=== PATIENT | male | born 1940 | race Caucasian/White ===

== ENCOUNTER 2020-11-17 14:21 | Inpatient (IN) ==
[2020-11-17 16:23] LABS: Basophils % 0.1 % (0.0-0.8); Hematocrit 35.9 VOL% (42.0-52.0); Immature Granulocytes % 0.5 %; Immature Granulocytes Absolute 0.05 #; Lymphocytes # 0.2 10*3/uL (1.4-4.0); Lymphocytes % 1.6 % (21.2-54.2); Mean Corpuscular HGB Conc 36.8 GM/DL (32-36); Mean Corpuscular Volume 84.3 FL (87-102); Monocytes % 9.5 % (1.7-12.7); Neutrophils % 88.3 % (38.7-73.9); Platelet Count 214 T/CUMM (130-400); Red Blood Count 4.26 MC/CUMM (3.8-5.5); Red Cell Distribution Width 12.4 % (9.3-17.3); White Blood Count 9.4 T/CUMM (4-12)
[2020-11-17] MEDS ORDERED: ALBUTEROL/IPRATROPIUM 3 ML NEB RESP TX STA (16:24)
[2020-11-17] MEDS ORDERED: methylPREDNISolone SOD SUC 125 MG/2 ML VIAL IV STA (16:24)
[2020-11-17] MEDS ORDERED: PIPERACILLIN/TAZOBACTAM 3,375 MG in SODIUM CHLORIDE 0.9% 100 ML IV STA (16:24)
[2020-11-17 16:27] LABS: Albumin 2.7 G/DL (3.4-5.0); Bilirubin,Total 1.5 MG/DL (0.2-1.0); Calcium 7.7 MG/DL (8.5-10.1); Hemoglobin 13.2 GM/DL (14.0-18.0); Osmolality,Calculated 241.3 MOS/KG (273-304); Potassium 4.9 MMOL/L (3.5-5.1); Total Protein 6.1 G/DL (6.4-8.3)
[2020-11-17 16:39] LABS: PT Patient Result 10.8 SECS (9.8-11.9)
[2020-11-17] MEDS ORDERED: hydrALAZINE 20 MG/1 ML VIAL IM STA (16:54)
[2020-11-17] MEDS ORDERED: hydrALAZINE 20 MG/1 ML VIAL ONE (16:55)
[2020-11-17] MEDS ORDERED: hydrALAZINE 20 MG/1 ML VIAL IV PRN (17:55)
[2020-11-17] MEDS ORDERED: DEXTROSE 50% 25 GM/50 ML VIAL IV PRN (17:55)
[2020-11-17] MEDS ORDERED: GLUCAGON 1 MG VIAL IM PRN (17:55)
[2020-11-17] MEDS ORDERED: ONDANSETRON 4 MG/2 ML VIAL IV PRN (17:55)
[2020-11-17] MEDS ORDERED: DOCUSATE SODIUM 100 MG CAPSULE PO PRN (17:55)
[2020-11-17 18:00] LABS: Band Neutrophils 1 % (0-10); Lymphocytes 6 % (20-55); Platelet Estimate Normal; Segmented Neutrophils 84 % (50-85); Total Cells Counted 100
[2020-11-17] MEDS ORDERED: ALBUTEROL 2.5 MG/3 ML NEB RESP TX PRN (18:17)
[2020-11-17] MEDS: SODIUM CHLORIDE 0.9% 1,000 ML IV SCH (19:10)
[2020-11-17] MEDS: ENOXAPARIN 40 MG/0.4 ML SYRINGE SUBCUT SCH (22:08)
[2020-11-17] MEDS: FAMOTIDINE 20 MG TABLET PO SCH (22:08)
[2020-11-17] MEDS: HYDROXYCHLOROQUINE 200 MG TABLET PO SCH (22:08)
[2020-11-17] MEDS: cefTRIAXone 2,000 MG in SODIUM CHLORIDE 0.9% 100 ML IV SCH (22:08)
[2020-11-18 03:59] LABS: Hemoglobin 11.9 GM/DL (14.0-18.0); Immature Granulocytes % 0.2 %; Immature Granulocytes Absolute 0.01 #; Lymphocytes # 0.1 10*3/uL (1.4-4.0); Mean Corpuscular HGB Conc 37.2 GM/DL (32-36); Mean Corpuscular Volume 85.3 FL (87-102); Mean Platelet Volume 11.1 FL (9.6-12.0); Monocytes % 4.8 % (1.7-12.7); Platelet Count 191 T/CUMM (130-400); Red Blood Count 3.75 MC/CUMM (3.8-5.5); Red Cell Distribution Width 12.2 % (9.3-17.3); White Blood Count 5.6 T/CUMM (4-12)
[2020-11-18 04:25] LABS: Calcium 7.9 MG/DL (8.5-10.1); Osmolality,Calculated 251.5 MOS/KG (273-304); Potassium 4.8 MMOL/L (3.5-5.1)
[2020-11-18 04:32] LABS: Hypochromasia 1+; Lymphocytes 3 % (20-55); Microcytosis 1+; Platelet Estimate Adequate; Segmented Neutrophils 96 % (50-85); Total Cells Counted 100
[2020-11-18] MEDS: SODIUM CHLORIDE 0.9% 1,000 ML IV SCH ×2 (07:20→15:00)
[2020-11-18] MEDS: AZITHROMYCIN 250 MG TABLET PO SCH (08:51)
[2020-11-18] MEDS: HYDROXYCHLOROQUINE 200 MG TABLET PO SCH ×2 (08:51→22:54)
[2020-11-18] MEDS: predniSONE 20 MG TABLET PO SCH (08:52)
[2020-11-18] MEDS: amLODIPine 10 MG TABLET PO SCH (08:52)
[2020-11-18] MEDS: ZINC SULFATE 220 MG CAPSULE PO SCH (08:52)
[2020-11-18] MEDS: FAMOTIDINE 20 MG TABLET PO SCH ×2 (08:52→22:54)
[2020-11-18] MEDS: ENOXAPARIN 40 MG/0.4 ML SYRINGE SUBCUT SCH (22:54)
[2020-11-18] MEDS: cefTRIAXone 2,000 MG in SODIUM CHLORIDE 0.9% 100 ML IV SCH (22:54)
[2020-11-19 03:55] LABS: ABG Base Excess 1.6 MMOL/L (-2.5-2.5); ABG HCO3 25.6 MMOL/L (20-26); ABG Oxygen Saturation 88.7 % (95-100); ABG PCO2 35.4 MM HG (35-48); ABG PH 7.459 (7.35-7.45); ABG PO2 55.1 MM HG (80-95); ABG TCO2 22.1 MMOL/L (23-27)
[2020-11-19] MEDS: SODIUM CHLORIDE 0.9% 1,000 ML IV SCH (03:58)
[2020-11-19 05:11] LABS: Hematocrit 36.1 VOL% (42.0-52.0); Hemoglobin 12.8 GM/DL (14.0-18.0); Immature Granulocytes % 0.6 %; Immature Granulocytes Absolute 0.07 #; Lymphocytes # 0.4 10*3/uL (1.4-4.0); Lymphocytes % 3.4 % (21.2-54.2); Mean Corpuscular HGB Conc 35.5 GM/DL (32-36); Mean Platelet Volume 10.5 FL (9.6-12.0); Monocytes % 11.6 % (1.7-12.7); Neutrophils % 84.4 % (38.7-73.9); Platelet Count 257 T/CUMM (130-400); Red Blood Count 4.15 MC/CUMM (3.8-5.5); Red Cell Distribution Width 12.4 % (9.3-17.3); White Blood Count 11.3 T/CUMM (4-12)
[2020-11-19 05:35] LABS: Lymphocytes 2 % (20-55); Platelet Estimate Adequate; Segmented Neutrophils 90 % (50-85); Total Cells Counted 100
[2020-11-19 05:37] LABS: Calcium 8.2 MG/DL (8.5-10.1); Osmolality,Calculated 261.8 MOS/KG (273-304); Potassium 4.3 MMOL/L (3.5-5.1)
[2020-11-19] MEDS: FAMOTIDINE 20 MG TABLET PO SCH ×2 (08:45→20:47)
[2020-11-19] MEDS: HYDROXYCHLOROQUINE 200 MG TABLET PO SCH ×2 (08:45→20:47)
[2020-11-19] MEDS: AZITHROMYCIN 250 MG TABLET PO SCH (08:45)
[2020-11-19] MEDS: predniSONE 20 MG TABLET PO SCH (08:45)
[2020-11-19] MEDS: amLODIPine 10 MG TABLET PO SCH (08:45)
[2020-11-19] MEDS: ZINC SULFATE 220 MG CAPSULE PO SCH (08:45)
[2020-11-19] MEDS: ACETAMINOPHEN 325 MG TABLET PO PRN (20:47)
[2020-11-19] MEDS: ENOXAPARIN 40 MG/0.4 ML SYRINGE SUBCUT SCH (20:47)
[2020-11-19] MEDS: cefTRIAXone 2,000 MG in SODIUM CHLORIDE 0.9% 100 ML IV SCH (20:49)
[2020-11-20 06:43] LABS: Hematocrit 41.2 VOL% (42.0-52.0); Hemoglobin 13.9 GM/DL (14.0-18.0); Immature Granulocytes % 0.6 %; Immature Granulocytes Absolute 0.08 #; Lymphocytes # 0.4 10*3/uL (1.4-4.0); Lymphocytes % 2.9 % (21.2-54.2); Mean Corpuscular HGB Conc 33.7 GM/DL (32-36); Mean Corpuscular Volume 91.4 FL (87-102); Mean Platelet Volume 10.4 FL (9.6-12.0); Monocytes % 9.9 % (1.7-12.7); Neutrophils % 86.6 % (38.7-73.9); Platelet Count 281 T/CUMM (130-400); Red Blood Count 4.51 MC/CUMM (3.8-5.5); Red Cell Distribution Width 12.4 % (9.3-17.3); White Blood Count 12.8 T/CUMM (4-12)
[2020-11-20 07:05] LABS: Calcium 8.3 MG/DL (8.5-10.1); Osmolality,Calculated 256.2 MOS/KG (273-304); Potassium 4.4 MMOL/L (3.5-5.1)
[2020-11-20 07:13] LABS: Lymphocytes 3 % (20-55); Platelet Estimate Adequate; Segmented Neutrophils 90 % (50-85); Total Cells Counted 100
[2020-11-20] MEDS ORDERED: FUROSEMIDE 40 MG/4 ML VIAL IV ONE (09:21)
[2020-11-20] MEDS: ACETAMINOPHEN 325 MG TABLET PO PRN (09:48)
[2020-11-20] MEDS: FAMOTIDINE 20 MG TABLET PO SCH ×2 (09:50→21:20)
[2020-11-20] MEDS: DEXAMETHASONE 10 MG/1 ML VIAL IV SCH (09:50)
[2020-11-20] MEDS: ZINC SULFATE 220 MG CAPSULE PO SCH (09:50)
[2020-11-20] MEDS: AZITHROMYCIN 250 MG TABLET PO SCH (09:50)
[2020-11-20] MEDS: HYDROXYCHLOROQUINE 200 MG TABLET PO SCH ×2 (09:50→21:20)
[2020-11-20] MEDS: amLODIPine 10 MG TABLET PO SCH (09:50)
[2020-11-20 12:02] LABS: ABG Base Excess -0.6 MMOL/L (-2.5-2.5); ABG HCO3 21.5 MMOL/L (20-26); ABG Oxygen Saturation 91.6 % (95-100); ABG PCO2 28.3 MM HG (35-48); ABG PH 7.499 (7.35-7.45); ABG PO2 58.6 MM HG (80-95); ABG TCO2 22.4 MMOL/L (23-27)
[2020-11-20] MEDS ORDERED: ALBUTEROL INHALER 18 GM INH PRN (12:35)
[2020-11-20] MEDS: ALBUTEROL INHALER 18 GM INH SCH (18:47)
[2020-11-20] MEDS: cefTRIAXone 2,000 MG in SODIUM CHLORIDE 0.9% 100 ML IV SCH (21:20)
[2020-11-20] MEDS: ENOXAPARIN 40 MG/0.4 ML SYRINGE SUBCUT SCH (21:20)
[2020-11-20] MEDS ORDERED: DILTIAZEM 25 MG/5 ML VIAL IV ONE ×2 (21:58→22:33)
[2020-11-20] MEDS: ENOXAPARIN 80 MG/0.8 ML SYRINGE SUBCUT SCH (22:38)
[2020-11-21] MEDS ORDERED: FUROSEMIDE 40 MG/4 ML VIAL IV ONE ×2 (01:37→15:29)
[2020-11-21 06:38] LABS: Calcium 8.1 MG/DL (8.5-10.1); Osmolality,Calculated 261.2 MOS/KG (273-304); Potassium 3.9 MMOL/L (3.5-5.1)
[2020-11-21 08:19] LABS: ABG Base Excess -2.1 MMOL/L (-2.5-2.5); ABG HCO3 22.5 MMOL/L (20-26); ABG Oxygen Saturation 90.1 % (95-100); ABG PCO2 37.4 MM HG (35-48); ABG PH 7.388 (7.35-7.45); ABG PO2 61.7 MM HG (80-95); ABG TCO2 19.7 MMOL/L (23-27)
[2020-11-21] MEDS: ALBUTEROL INHALER 18 GM INH SCH ×2 (09:46→18:03)
[2020-11-21] MEDS: AZITHROMYCIN 250 MG TABLET PO SCH (09:47)
[2020-11-21] MEDS: ZINC SULFATE 220 MG CAPSULE PO SCH (09:47)
[2020-11-21] MEDS: DEXAMETHASONE 10 MG/1 ML VIAL IV SCH (09:47)
[2020-11-21] MEDS: FAMOTIDINE 20 MG TABLET PO SCH ×2 (09:47→20:53)
[2020-11-21] MEDS: carvediloL 6.25 MG TABLET PO SCH ×2 (09:47→20:53)
[2020-11-21] MEDS: HYDROXYCHLOROQUINE 200 MG TABLET PO SCH ×2 (09:47→20:54)
[2020-11-21] MEDS: amLODIPine 10 MG TABLET PO SCH (09:47)
[2020-11-21] MEDS: ENOXAPARIN 80 MG/0.8 ML SYRINGE SUBCUT SCH ×2 (10:10→21:37)
[2020-11-21 10:55] LABS: Free T4 (Free Thyroxine) 1.68 NG/DL (0.76-1.46)
[2020-11-21] MEDS ORDERED: DILTIAZEM CD 120 MG CAPSULE PO ONE (15:27)
[2020-11-21] MEDS: cefTRIAXone 2,000 MG in SODIUM CHLORIDE 0.9% 100 ML IV SCH (20:54)
[2020-11-22 05:04] LABS: Allen Test Positive; Pt O2 Delivery Device Other
[2020-11-22 05:11] LABS: ABG Base Excess 0.7 MMOL/L (-2.5-2.5); ABG HCO3 24.7 MMOL/L (20-26); ABG Oxygen Saturation 84.5 % (95-100); ABG PCO2 38.3 MM HG (35-48); ABG PH 7.421 (7.35-7.45); ABG PO2 52.1 MM HG (80-95); ABG TCO2 22.1 MMOL/L (23-27)
[2020-11-22 05:45] LABS: Basophils % 0.1 % (0.0-0.8); Hematocrit 33.2 VOL% (42.0-52.0); Immature Granulocytes % 0.6 %; Immature Granulocytes Absolute 0.08 #; Lymphocytes # 0.2 10*3/uL (1.4-4.0); Lymphocytes % 1.2 % (21.2-54.2); Mean Corpuscular HGB Conc 36.1 GM/DL (32-36); Mean Corpuscular Volume 86.2 FL (87-102); Mean Platelet Volume 10.2 FL (9.6-12.0); Monocytes % 5.9 % (1.7-12.7); Neutrophils % 92.2 % (38.7-73.9); Platelet Count 248 T/CUMM (130-400); Red Blood Count 3.85 MC/CUMM (3.8-5.5); Red Cell Distribution Width 12.1 % (9.3-17.3); White Blood Count 12.5 T/CUMM (4-12)
[2020-11-22 06:16] LABS: Osmolality,Calculated 271.9 MOS/KG (273-304); Potassium 4.3 MMOL/L (3.5-5.1)
[2020-11-22 06:35] LABS: Hypochromasia 1+; Lymphocytes 2 % (20-55); Microcytosis 1+; Platelet Estimate Adequate; Segmented Neutrophils 92 % (50-85); Total Cells Counted 100
[2020-11-22] MEDS: ALBUTEROL INHALER 18 GM INH SCH ×2 (07:45→18:55)
[2020-11-22] MEDS: FAMOTIDINE 20 MG TABLET PO SCH ×2 (09:28→20:26)
[2020-11-22] MEDS: DILTIAZEM CD 180 MG CAPSULE PO SCH (09:28)
[2020-11-22] MEDS: ZINC SULFATE 220 MG CAPSULE PO SCH (09:28)
[2020-11-22] MEDS: AZITHROMYCIN 250 MG TABLET PO SCH (09:28)
[2020-11-22] MEDS: HYDROXYCHLOROQUINE 200 MG TABLET PO SCH ×2 (09:28→20:26)
[2020-11-22] MEDS: DEXAMETHASONE 10 MG/1 ML VIAL IV SCH (09:28)
[2020-11-22] MEDS: carvediloL 6.25 MG TABLET PO SCH ×2 (09:29→20:26)
[2020-11-22] MEDS: ENOXAPARIN 80 MG/0.8 ML SYRINGE SUBCUT SCH ×3 (10:35→23:43)
[2020-11-22] MEDS: cefTRIAXone 2,000 MG in SODIUM CHLORIDE 0.9% 100 ML IV SCH (20:28)
[2020-11-23 03:23] LABS: ABG Base Excess 1.6 MMOL/L (-2.5-2.5); ABG HCO3 25.7 MMOL/L (20-26); ABG Oxygen Saturation 92.6 % (95-100); ABG PCO2 42.6 MM HG (35-48); ABG PH 7.404 (7.35-7.45); ABG PO2 68.9 MM HG (80-95)
[2020-11-23 05:28] LABS: Basophils % 0.1 % (0.0-0.8); Hematocrit 39.1 VOL% (42.0-52.0); Hemoglobin 13.1 GM/DL (14.0-18.0); Immature Granulocytes % 0.9 %; Immature Granulocytes Absolute 0.14 #; Lymphocytes # 0.2 10*3/uL (1.4-4.0); Lymphocytes % 1.1 % (21.2-54.2); Mean Corpuscular HGB Conc 33.5 GM/DL (32-36); Mean Corpuscular Volume 90.1 FL (87-102); Mean Platelet Volume 9.9 FL (9.6-12.0); Monocytes % 4.1 % (1.7-12.7); Neutrophils % 93.8 % (38.7-73.9); Platelet Count 304 T/CUMM (130-400); Red Blood Count 4.34 MC/CUMM (3.8-5.5); Red Cell Distribution Width 11.9 % (9.3-17.3); White Blood Count 15.9 T/CUMM (4-12)
[2020-11-23 05:57] LABS: Calcium 7.9 MG/DL (8.5-10.1); Osmolality,Calculated 273.2 MOS/KG (273-304); Potassium 4.7 MMOL/L (3.5-5.1)
[2020-11-23 06:38] LABS: Hypochromasia Slight; Lymphocytes 1 % (20-55); Microcytosis 1+; Ovalocytes Slight; Segmented Neutrophils 95 % (50-85); Total Cells Counted 100
[2020-11-23] MEDS: ALBUTEROL INHALER 18 GM INH SCH ×2 (06:57→21:08)
[2020-11-23] MEDS: HYDROXYCHLOROQUINE 200 MG TABLET PO SCH ×2 (09:35→21:07)
[2020-11-23] MEDS: FAMOTIDINE 20 MG TABLET PO SCH ×2 (09:35→21:07)
[2020-11-23] MEDS: DILTIAZEM CD 180 MG CAPSULE PO SCH (09:35)
[2020-11-23] MEDS: ZINC SULFATE 220 MG CAPSULE PO SCH (09:35)
[2020-11-23] MEDS: ENOXAPARIN 80 MG/0.8 ML SYRINGE SUBCUT SCH ×2 (09:35→21:42)
[2020-11-23] MEDS: carvediloL 6.25 MG TABLET PO SCH ×2 (09:36→21:07)
[2020-11-23] MEDS: DEXAMETHASONE 10 MG/1 ML VIAL IV SCH (09:36)
[2020-11-23] MEDS: cefTRIAXone 2,000 MG in SODIUM CHLORIDE 0.9% 100 ML IV SCH (21:08)
[2020-11-24 04:46] LABS: ABG Base Excess 3.8 MMOL/L (-2.5-2.5); ABG HCO3 27.8 MMOL/L (20-26); ABG Oxygen Saturation 97.4 % (95-100); ABG PH 7.445 (7.35-7.45); ABG PO2 90.2 MM HG (80-95); ABG TCO2 24.4 MMOL/L (23-27)
[2020-11-24 05:41] LABS: Basophils % 0.2 % (0.0-0.8); Hematocrit 37.1 VOL% (42.0-52.0); Immature Granulocytes % 0.8 %; Immature Granulocytes Absolute 0.13 #; Lymphocytes # 0.2 10*3/uL (1.4-4.0); Lymphocytes % 0.9 % (21.2-54.2); Mean Corpuscular Volume 87.9 FL (87-102); Mean Platelet Volume 10.4 FL (9.6-12.0); Monocytes % 3.7 % (1.7-12.7); Neutrophils % 94.4 % (38.7-73.9); Platelet Count 255 T/CUMM (130-400); Red Blood Count 4.22 MC/CUMM (3.8-5.5); White Blood Count 16.3 T/CUMM (4-12)
[2020-11-24 05:58] LABS: Calcium 8.1 MG/DL (8.5-10.1); Osmolality,Calculated 272.9 MOS/KG (273-304); Potassium 4.9 MMOL/L (3.5-5.1)
[2020-11-24 06:04] LABS: Hypochromasia 1+; Lymphocytes 3 % (20-55); Segmented Neutrophils 95 % (50-85); Total Cells Counted 100
[2020-11-24 06:05] LABS: Microcytosis Slight; Platelet Estimate Normal
[2020-11-24] MEDS: carvediloL 6.25 MG TABLET PO SCH ×2 (09:22→20:44)
[2020-11-24] MEDS: HYDROXYCHLOROQUINE 200 MG TABLET PO SCH ×2 (09:22→20:44)
[2020-11-24] MEDS: ZINC SULFATE 220 MG CAPSULE PO SCH (09:22)
[2020-11-24] MEDS: DILTIAZEM CD 180 MG CAPSULE PO SCH (09:22)
[2020-11-24] MEDS: DEXAMETHASONE 10 MG/1 ML VIAL IV SCH (09:22)
[2020-11-24] MEDS: FAMOTIDINE 20 MG TABLET PO SCH ×2 (09:22→20:44)
[2020-11-24] MEDS: ALBUTEROL INHALER 18 GM INH SCH ×2 (09:22→20:44)
[2020-11-24] MEDS: ENOXAPARIN 80 MG/0.8 ML SYRINGE SUBCUT SCH ×2 (09:30→22:33)
[2020-11-24] MEDS: cefTRIAXone 2,000 MG in SODIUM CHLORIDE 0.9% 100 ML IV SCH (20:43)
[2020-11-25 04:18] LABS: ABG Base Excess 4.3 MMOL/L (-2.5-2.5); ABG HCO3 28.3 MMOL/L (20-26); ABG Oxygen Saturation 98.2 % (95-100); ABG PCO2 40.7 MM HG (35-48); ABG PH 7.455 (7.35-7.45); ABG TCO2 24.8 MMOL/L (23-27)
[2020-11-25 05:57] LABS: Basophils % 0.1 % (0.0-0.8); Hematocrit 37.9 VOL% (42.0-52.0); Immature Granulocytes Absolute 0.17 #; Lymphocytes # 0.3 10*3/uL (1.4-4.0); Lymphocytes % 1.4 % (21.2-54.2); Mean Corpuscular HGB Conc 34.3 GM/DL (32-36); Mean Corpuscular Volume 88.3 FL (87-102); Mean Platelet Volume 10.6 FL (9.6-12.0); Monocytes % 2.8 % (1.7-12.7); Neutrophils % 94.7 % (38.7-73.9); Platelet Count 219 T/CUMM (130-400); Red Blood Count 4.29 MC/CUMM (3.8-5.5); Red Cell Distribution Width 12.2 % (9.3-17.3); White Blood Count 17.7 T/CUMM (4-12)
[2020-11-25 06:19] LABS: Albumin 1.9 G/DL (3.4-5.0); Bilirubin,Total 1.1 MG/DL (0.2-1.0); Calcium 8.1 MG/DL (8.5-10.1); Lymphocytes 3 % (20-55); Osmolality,Calculated 283.1 MOS/KG (273-304); Platelet Estimate Adequate; Potassium 5.1 MMOL/L (3.5-5.1); Segmented Neutrophils 96 % (50-85); Total Cells Counted 100; Total Protein 4.7 G/DL (6.4-8.3)
[2020-11-25] MEDS: DEXAMETHASONE 10 MG/1 ML VIAL IV SCH (10:25)
[2020-11-25] MEDS: ENOXAPARIN 80 MG/0.8 ML SYRINGE SUBCUT SCH (10:31)
[2020-11-25] MEDS: DILTIAZEM CD 180 MG CAPSULE PO SCH (10:31)
[2020-11-25] MEDS: HYDROXYCHLOROQUINE 200 MG TABLET PO SCH ×2 (10:31→20:10)
[2020-11-25] MEDS: FAMOTIDINE 20 MG TABLET PO SCH ×2 (10:31→20:10)
[2020-11-25] MEDS: cefTRIAXone 1,000 MG in SYRINGE 1 EACH IV SCH (10:31)
[2020-11-25] MEDS: carvediloL 6.25 MG TABLET PO SCH ×2 (10:31→20:09)
[2020-11-25] MEDS: ZINC SULFATE 220 MG CAPSULE PO SCH (10:31)
[2020-11-25] MEDS: ACETAMINOPHEN 325 MG TABLET PO PRN ×2 (10:31→20:09)
[2020-11-25] MEDS: ALBUTEROL INHALER 18 GM INH SCH ×2 (10:31→18:13)
[2020-11-25] MEDS: AZITHROMYCIN INJ 500 MG in SODIUM CHLORIDE 0.9% 250 ML IV SCH (10:34)
[2020-11-26] MEDS: ENOXAPARIN 80 MG/0.8 ML SYRINGE SUBCUT SCH ×2 (00:05→10:28)
[2020-11-26 05:29] LABS: Basophils % 0.1 % (0.0-0.8); Hematocrit 37.5 VOL% (42.0-52.0); Hemoglobin 13.1 GM/DL (14.0-18.0); Immature Granulocytes % 0.9 %; Immature Granulocytes Absolute 0.17 #; Lymphocytes # 0.2 10*3/uL (1.4-4.0); Lymphocytes % 1.1 % (21.2-54.2); Mean Corpuscular HGB Conc 34.9 GM/DL (32-36); Mean Corpuscular Volume 89.7 FL (87-102); Mean Platelet Volume 10.9 FL (9.6-12.0); Neutrophils % 94.9 % (38.7-73.9); Platelet Count 191 T/CUMM (130-400); Red Blood Count 4.18 MC/CUMM (3.8-5.5); White Blood Count 18.2 T/CUMM (4-12)
[2020-11-26 05:54] LABS: Calcium 7.9 MG/DL (8.5-10.1); Ferritin 2165.2 ng/ml (26-388); Potassium 5.4 MMOL/L (3.5-5.1)
[2020-11-26 05:55] LABS: Lymphocytes 2 % (20-55); Platelet Estimate Normal; Segmented Neutrophils 95 % (50-85); Total Cells Counted 100
[2020-11-26] MEDS: HYDROXYCHLOROQUINE 200 MG TABLET PO SCH ×2 (09:35→21:01)
[2020-11-26] MEDS: DILTIAZEM CD 180 MG CAPSULE PO SCH (09:35)
[2020-11-26] MEDS: FAMOTIDINE 20 MG TABLET PO SCH ×2 (09:35→21:01)
[2020-11-26] MEDS: ZINC SULFATE 220 MG CAPSULE PO SCH (09:35)
[2020-11-26] MEDS: ALBUTEROL INHALER 18 GM INH SCH ×2 (09:35→21:02)
[2020-11-26] MEDS: DEXAMETHASONE 10 MG/1 ML VIAL IV SCH (09:35)
[2020-11-26] MEDS: carvediloL 6.25 MG TABLET PO SCH ×2 (09:35→21:01)
[2020-11-26] MEDS: cefTRIAXone 1,000 MG in SYRINGE 1 EACH IV SCH (09:38)
[2020-11-26] MEDS: AZITHROMYCIN INJ 500 MG in SODIUM CHLORIDE 0.9% 250 ML IV SCH (09:41)
[2020-11-26 17:53] LABS: Hematocrit 38.1 VOL% (42.0-52.0)
[2020-11-26 18:28] LABS: Folate 15.8 NG/ML (5.38-24.0)
[2020-11-26 18:30] LABS: % Iron Saturation 33.2 % (18-50); Ferritin 2139.7 ng/ml (26-388)
[2020-11-26] MEDS: ACETAMINOPHEN 325 MG TABLET PO PRN (21:01)
[2020-11-26 22:02] LABS: Hematocrit 31.5 VOL% (42.0-52.0); Hemoglobin 10.3 GM/DL (14.0-18.0)
[2020-11-27 06:12] LABS: Basophils % 0.1 % (0.0-0.8); Hematocrit 32.4 VOL% (42.0-52.0); Hemoglobin 10.7 GM/DL (14.0-18.0); Immature Granulocytes % 1.2 %; Immature Granulocytes Absolute 0.24 #; Lymphocytes # 0.2 10*3/uL (1.4-4.0); Lymphocytes % 1.2 % (21.2-54.2); Mean Corpuscular Volume 93.1 FL (87-102); Mean Platelet Volume 10.8 FL (9.6-12.0); Monocytes % 3.5 % (1.7-12.7); Platelet Count 200 T/CUMM (130-400); Red Blood Count 3.48 MC/CUMM (3.8-5.5); Red Cell Distribution Width 12.3 % (9.3-17.3); White Blood Count 20.1 T/CUMM (4-12)
[2020-11-27 06:32] LABS: Ferritin 1986.9 ng/ml (26-388); Osmolality,Calculated 291.7 MOS/KG (273-304); Potassium 5.6 MMOL/L (3.5-5.1)
[2020-11-27 06:34] LABS: Hypochromasia 1+; Lymphocytes 1 % (20-55); Microcytosis 1+; Platelet Estimate Adequate; Segmented Neutrophils 95 % (50-85); Total Cells Counted 100
[2020-11-27] MEDS ORDERED: SODIUM POLYSTYRENE SULFATE 15 GM/60 ML BOTTLE PO STA (06:56)
[2020-11-27] MEDS: carvediloL 6.25 MG TABLET PO SCH ×2 (08:25→21:45)
[2020-11-27] MEDS: FAMOTIDINE 20 MG TABLET PO SCH ×2 (08:25→21:44)
[2020-11-27] MEDS: HYDROXYCHLOROQUINE 200 MG TABLET PO SCH ×2 (08:25→21:44)
[2020-11-27] MEDS: DEXAMETHASONE 10 MG/1 ML VIAL IV SCH (08:25)
[2020-11-27] MEDS: DILTIAZEM CD 180 MG CAPSULE PO SCH (08:25)
[2020-11-27] MEDS: ZINC SULFATE 220 MG CAPSULE PO SCH (08:25)
[2020-11-27] MEDS: ALBUTEROL INHALER 18 GM INH SCH ×2 (08:25→21:44)
[2020-11-27] MEDS: cefTRIAXone 1,000 MG in SYRINGE 1 EACH IV SCH (08:32)
[2020-11-27] MEDS: AZITHROMYCIN INJ 500 MG in SODIUM CHLORIDE 0.9% 250 ML IV SCH (08:32)
[2020-11-27] MEDS: FUROSEMIDE 40 MG/4 ML VIAL IV SCH (16:19)
[2020-11-27] MEDS: PANTOPRAZOLE 40 MG VIAL IV SCH (21:43)
[2020-11-28 05:27] LABS: Basophils % 0.1 % (0.0-0.8); Hematocrit 30.1 VOL% (42.0-52.0); Hemoglobin 10.1 GM/DL (14.0-18.0); Immature Granulocytes % 1.2 %; Immature Granulocytes Absolute 0.23 #; Lymphocytes # 0.2 10*3/uL (1.4-4.0); Lymphocytes % 0.9 % (21.2-54.2); Mean Corpuscular HGB Conc 33.6 GM/DL (32-36); Mean Corpuscular Volume 91.8 FL (87-102); Mean Platelet Volume 11.3 FL (9.6-12.0); Monocytes % 3.3 % (1.7-12.7); Neutrophils % 94.5 % (38.7-73.9); Platelet Count 172 T/CUMM (130-400); Red Blood Count 3.28 MC/CUMM (3.8-5.5); White Blood Count 19.4 T/CUMM (4-12)
[2020-11-28 05:50] LABS: Hypochromasia 1+; Lymphocytes 2 % (20-55); Microcytosis 1+; Segmented Neutrophils 97 % (50-85); Total Cells Counted 100
[2020-11-28 06:18] LABS: Ferritin 2642.2 ng/ml (26-388); Osmolality,Calculated 291.4 MOS/KG (273-304); Potassium 4.7 MMOL/L (3.5-5.1)
[2020-11-28] MEDS: ALBUTEROL INHALER 18 GM INH SCH ×2 (08:37→20:49)
[2020-11-28] MEDS: PANTOPRAZOLE 40 MG VIAL IV SCH ×2 (08:37→20:49)
[2020-11-28] MEDS: AZITHROMYCIN INJ 500 MG in SODIUM CHLORIDE 0.9% 250 ML IV SCH (08:38)
[2020-11-28] MEDS: cefTRIAXone 1,000 MG in SYRINGE 1 EACH IV SCH (08:38)
[2020-11-28] MEDS: FUROSEMIDE 40 MG/4 ML VIAL IV SCH ×2 (08:38→16:30)
[2020-11-28] MEDS: DEXAMETHASONE 10 MG/1 ML VIAL IV SCH (08:38)
[2020-11-28] MEDS: DILTIAZEM CD 180 MG CAPSULE PO SCH (08:39)
[2020-11-28] MEDS: ZINC SULFATE 220 MG CAPSULE PO SCH (08:39)
[2020-11-28] MEDS: FAMOTIDINE 20 MG TABLET PO SCH ×2 (08:39→20:49)
[2020-11-28] MEDS: HYDROXYCHLOROQUINE 200 MG TABLET PO SCH ×2 (08:39→20:49)
[2020-11-28] MEDS: carvediloL 6.25 MG TABLET PO SCH ×2 (08:39→20:49)
[2020-11-28 17:44] LABS: Bilirubin,Urine Negative (Negative); Blood, Urine Small mg/dL (Negative); Glucose,Urine (UA) Negative (Negative); Ketones,Urine Negative (Negative); Mucus,Urine Occasional /LPF (Occasional); Nitrite,Urine Negative (Negative); Protein,Urine Negative; RBC,Urine 3 /HPF (0-4); Urine Appearance CLEAR (Clear); Urine Color Yellow (Yellow); Urine Specific Gravity 1.015 (1.001-1.035); Urine Urobilinogen < 2.0 EU/DL (0.2-1.0); WBC,Urine 1 /HPF (0-6)
[2020-11-29 07:01] LABS: Calcium 7.8 MG/DL (8.5-10.1); Osmolality,Calculated 292.3 MOS/KG (273-304); Potassium 4.3 MMOL/L (3.5-5.1)
[2020-11-29 07:08] LABS: Basophils % 0.1 % (0.0-0.8); Hematocrit 30.2 VOL% (42.0-52.0); Immature Granulocytes % 1.1 %; Immature Granulocytes Absolute 0.22 #; Lymphocytes # 0.3 10*3/uL (1.4-4.0); Lymphocytes % 1.5 % (21.2-54.2); Mean Corpuscular HGB Conc 33.1 GM/DL (32-36); Mean Platelet Volume 11.7 FL (9.6-12.0); Monocytes % 2.9 % (1.7-12.7); Neutrophils % 94.4 % (38.7-73.9); Platelet Count 137 T/CUMM (130-400); Red Blood Count 3.32 MC/CUMM (3.8-5.5); Red Cell Distribution Width 12.1 % (9.3-17.3); White Blood Count 20.8 T/CUMM (4-12)
[2020-11-29 07:34] LABS: Hypochromasia 1+; Lymphocytes 2 % (20-55); Microcytosis 1+; Platelet Estimate Normal; Segmented Neutrophils 97 % (50-85); Total Cells Counted 100
[2020-11-29] MEDS: PANTOPRAZOLE 40 MG VIAL IV SCH ×2 (11:47→21:00)
[2020-11-29] MEDS: DEXAMETHASONE 10 MG/1 ML VIAL IV SCH (11:48)
[2020-11-29] MEDS: cefTRIAXone 1,000 MG in SYRINGE 1 EACH IV SCH (11:48)
[2020-11-29] MEDS: FUROSEMIDE 40 MG/4 ML VIAL IV SCH ×2 (11:48→17:14)
[2020-11-29] MEDS: ZINC SULFATE 220 MG CAPSULE PO SCH (11:49)
[2020-11-29] MEDS: carvediloL 6.25 MG TABLET PO SCH ×2 (11:49→21:00)
[2020-11-29] MEDS: HYDROXYCHLOROQUINE 200 MG TABLET PO SCH ×2 (11:49→21:00)
[2020-11-29] MEDS: DILTIAZEM CD 180 MG CAPSULE PO SCH (11:53)
[2020-11-29] MEDS: AZITHROMYCIN INJ 500 MG in SODIUM CHLORIDE 0.9% 250 ML IV SCH (11:54)
[2020-11-29] MEDS: ALBUTEROL INHALER 18 GM INH SCH ×2 (11:55→19:11)
[2020-11-29] MEDS: ENOXAPARIN 40 MG/0.4 ML SYRINGE SUBCUT SCH (13:16)
[2020-11-29] MEDS: FAMOTIDINE 20 MG TABLET PO SCH ×2 (13:17→21:00)
[2020-11-30 06:28] LABS: Basophils % 0.1 % (0.0-0.8); Hematocrit 33.2 VOL% (42.0-52.0); Hemoglobin 10.7 GM/DL (14.0-18.0); Immature Granulocytes % 0.9 %; Immature Granulocytes Absolute 0.17 #; Lymphocytes # 0.2 10*3/uL (1.4-4.0); Lymphocytes % 1.2 % (21.2-54.2); Mean Corpuscular HGB Conc 32.2 GM/DL (32-36); Mean Corpuscular Volume 94.6 FL (87-102); Monocytes % 3.4 % (1.7-12.7); Neutrophils % 94.4 % (38.7-73.9); Platelet Count 128 T/CUMM (130-400); Red Blood Count 3.51 MC/CUMM (3.8-5.5); Red Cell Distribution Width 12.2 % (9.3-17.3); White Blood Count 18.5 T/CUMM (4-12)
[2020-11-30 07:56] LABS: Calcium 8.1 MG/DL (8.5-10.1); Osmolality,Calculated 301.7 MOS/KG (273-304); Potassium 4.8 MMOL/L (3.5-5.1)
[2020-11-30 09:33] LABS: Anisocytosis Slight; Lymphocytes 2 % (20-55); Macrocytosis Slight; Platelet Estimate Decreased; Segmented Neutrophils 97 % (50-85); Total Cells Counted 100
[2020-11-30] MEDS: PANTOPRAZOLE 40 MG VIAL IV SCH ×2 (10:18→21:35)
[2020-11-30] MEDS: DEXAMETHASONE 10 MG/1 ML VIAL IV SCH (10:19)
[2020-11-30] MEDS: DILTIAZEM CD 180 MG CAPSULE PO SCH (10:20)
[2020-11-30] MEDS: carvediloL 6.25 MG TABLET PO SCH ×2 (10:20→21:35)
[2020-11-30] MEDS: HYDROXYCHLOROQUINE 200 MG TABLET PO SCH ×2 (10:21→21:35)
[2020-11-30] MEDS: FAMOTIDINE 20 MG TABLET PO SCH ×2 (10:21→21:35)
[2020-11-30] MEDS: ZINC SULFATE 220 MG CAPSULE PO SCH (10:21)
[2020-11-30] MEDS: AZITHROMYCIN INJ 500 MG in SODIUM CHLORIDE 0.9% 250 ML IV SCH (10:22)
[2020-11-30] MEDS: ALBUTEROL INHALER 18 GM INH SCH ×2 (10:22→19:37)
[2020-11-30] MEDS: FUROSEMIDE 40 MG/4 ML VIAL IV SCH ×2 (10:27→15:41)
[2020-11-30] MEDS: cefTRIAXone 1,000 MG in SYRINGE 1 EACH IV SCH (10:29)
[2020-11-30] MEDS: ENOXAPARIN 40 MG/0.4 ML SYRINGE SUBCUT SCH (11:56)
[2020-12-01 04:57] LABS: ABG Base Excess 8.7 MMOL/L (-2.5-2.5); ABG HCO3 32.5 MMOL/L (20-26); ABG PCO2 42.7 MM HG (35-48); ABG PH 7.496 (7.35-7.45); Allen Test Positive; Pt O2 Delivery Device BIPAP
[2020-12-01 07:07] LABS: Basophils % 0.1 % (0.0-0.8); Hematocrit 31.8 VOL% (42.0-52.0); Hemoglobin 10.4 GM/DL (14.0-18.0); Immature Granulocytes % 0.7 %; Immature Granulocytes Absolute 0.14 #; Lymphocytes # 0.3 10*3/uL (1.4-4.0); Lymphocytes % 1.4 % (21.2-54.2); Mean Corpuscular HGB Conc 32.7 GM/DL (32-36); Mean Platelet Volume 12.4 FL (9.6-12.0); Monocytes % 3.9 % (1.7-12.7); Neutrophils % 93.9 % (38.7-73.9); Platelet Count 131 T/CUMM (130-400); Red Blood Count 3.42 MC/CUMM (3.8-5.5); Red Cell Distribution Width 12.1 % (9.3-17.3); White Blood Count 21.1 T/CUMM (4-12)
[2020-12-01 07:23] LABS: Osmolality,Calculated 310.3 MOS/KG (273-304); Potassium 4.2 MMOL/L (3.5-5.1)
[2020-12-01] MEDS: DILTIAZEM CD 180 MG CAPSULE PO SCH (09:59)
[2020-12-01] MEDS: PANTOPRAZOLE 40 MG VIAL IV SCH ×2 (09:59→21:08)
[2020-12-01] MEDS: HYDROXYCHLOROQUINE 200 MG TABLET PO SCH ×2 (09:59→21:08)
[2020-12-01] MEDS: ZINC SULFATE 220 MG CAPSULE PO SCH (10:00)
[2020-12-01] MEDS: carvediloL 6.25 MG TABLET PO SCH (10:00)
[2020-12-01] MEDS: FAMOTIDINE 20 MG TABLET PO SCH ×2 (10:00→21:08)
[2020-12-01] MEDS: cefTRIAXone 1,000 MG in SYRINGE 1 EACH IV SCH (10:01)
[2020-12-01] MEDS: DEXAMETHASONE 10 MG/1 ML VIAL IV SCH (10:01)
[2020-12-01] MEDS: AZITHROMYCIN INJ 500 MG in SODIUM CHLORIDE 0.9% 250 ML IV SCH (10:03)
[2020-12-01] MEDS: ALBUTEROL INHALER 18 GM INH SCH ×2 (10:10→19:29)
[2020-12-01] MEDS: DEXTROSE 5% NACL 0.45% 1,000 ML IV SCH ×3 (10:27→23:34)
[2020-12-01] MEDS: ENOXAPARIN 40 MG/0.4 ML SYRINGE SUBCUT SCH (13:20)
[2020-12-01] MEDS: MYLANTA/LIDO VISC/NYST 180 ML BOTTLE SWISH/SWAL SCH ×3 (13:20→21:08)
[2020-12-01] MEDS: carvediloL 12.5 MG TABLET PO SCH (21:08)
[2020-12-02 05:30] LABS: Basophils % 0.2 % (0.0-0.8); Hematocrit 28.8 VOL% (42.0-52.0); Hemoglobin 9.6 GM/DL (14.0-18.0); Immature Granulocytes % 0.6 %; Immature Granulocytes Absolute 0.12 #; Lymphocytes # 0.2 10*3/uL (1.4-4.0); Lymphocytes % 1.1 % (21.2-54.2); Mean Corpuscular HGB Conc 33.3 GM/DL (32-36); Mean Corpuscular Volume 91.1 FL (87-102); Mean Platelet Volume 12.1 FL (9.6-12.0); Monocytes % 3.9 % (1.7-12.7); Neutrophils % 94.2 % (38.7-73.9); Platelet Count 122 T/CUMM (130-400); Red Blood Count 3.16 MC/CUMM (3.8-5.5); Red Cell Distribution Width 11.9 % (9.3-17.3); White Blood Count 19.2 T/CUMM (4-12)
[2020-12-02 05:56] LABS: Hypochromasia Slight; Lymphocytes 3 % (20-55); Segmented Neutrophils 97 % (50-85); Total Cells Counted 100
[2020-12-02 05:57] LABS: Microcytosis 1+; Platelet Estimate Adequate
[2020-12-02 05:59] LABS: Calcium 7.5 MG/DL (8.5-10.1); Osmolality,Calculated 309.3 MOS/KG (273-304); Potassium 4.4 MMOL/L (3.5-5.1)
[2020-12-02] MEDS: DEXTROSE 5% NACL 0.45% 1,000 ML IV SCH ×2 (06:00→09:06)
[2020-12-02] MEDS: ALBUTEROL INHALER 18 GM INH SCH ×2 (09:00→19:25)
[2020-12-02] MEDS: MYLANTA/LIDO VISC/NYST 180 ML BOTTLE SWISH/SWAL SCH ×4 (09:00→20:27)
[2020-12-02] MEDS: PANTOPRAZOLE 40 MG VIAL IV SCH ×2 (09:04→20:26)
[2020-12-02] MEDS: DEXAMETHASONE 10 MG/1 ML VIAL IV SCH (09:04)
[2020-12-02] MEDS: carvediloL 12.5 MG TABLET PO SCH ×2 (09:05→20:25)
[2020-12-02] MEDS: ZINC SULFATE 220 MG CAPSULE PO SCH (09:05)
[2020-12-02] MEDS: HYDROXYCHLOROQUINE 200 MG TABLET PO SCH ×2 (09:05→20:28)
[2020-12-02] MEDS: FAMOTIDINE 20 MG TABLET PO SCH (09:05)
[2020-12-02] MEDS: DILTIAZEM CD 180 MG CAPSULE PO SCH (09:05)
[2020-12-02] MEDS: ENOXAPARIN 40 MG/0.4 ML SYRINGE SUBCUT SCH (11:36)
[2020-12-02] MEDS: SUCRALFATE 1 GM/10 ML UDCUP PO SCH ×3 (11:36→20:26)
[2020-12-02] MEDS: FLUTICASONE 50 MCG NASAL SPRAY 16 GM BOTTLE BOTH NARES SCH ×2 (14:18→20:28)
[2020-12-02] MEDS: SODIUM CHLORIDE 0.65% NASAL SPRAY 45 ML BOTTLE BOTH NARES SCH ×2 (14:18→20:28)
[2020-12-03 05:33] LABS: Basophils % 0.1 % (0.0-0.8); Hematocrit 29.8 VOL% (42.0-52.0); Hemoglobin 9.9 GM/DL (14.0-18.0); Lymphocytes # 0.3 10*3/uL (1.4-4.0); Mean Corpuscular HGB Conc 33.2 GM/DL (32-36); Mean Corpuscular Volume 93.1 FL (87-102); Mean Platelet Volume 12.7 FL (9.6-12.0); Monocytes % 3.2 % (1.7-12.7); Neutrophils % 94.7 % (38.7-73.9); Platelet Count 138 T/CUMM (130-400); Red Cell Distribution Width 12.1 % (9.3-17.3); White Blood Count 28.7 T/CUMM (4-12)
[2020-12-03 05:43] LABS: Calcium 7.8 MG/DL (8.5-10.1); Potassium 4.3 MMOL/L (3.5-5.1)
[2020-12-03 05:47] LABS: Albumin 1.9 G/DL (3.4-5.0); Bilirubin,Total 1.8 MG/DL (0.2-1.0); Calcium 7.7 MG/DL (8.5-10.1); Osmolality,Calculated 313.9 MOS/KG (273-304); Potassium 4.3 MMOL/L (3.5-5.1); Total Protein 4.5 G/DL (6.4-8.3)
[2020-12-03 05:59] LABS: Hypochromasia 1+; Microcytosis 1+; Platelet Estimate Adequate; Segmented Neutrophils 98 % (50-85); Total Cells Counted 100
[2020-12-03] MEDS: DEXAMETHASONE 10 MG/1 ML VIAL IV SCH (08:35)
[2020-12-03] MEDS: PANTOPRAZOLE 40 MG VIAL IV SCH ×2 (08:35→20:30)
[2020-12-03] MEDS: DILTIAZEM CD 180 MG CAPSULE PO SCH (08:36)
[2020-12-03] MEDS: HYDROXYCHLOROQUINE 200 MG TABLET PO SCH ×2 (08:36→20:30)
[2020-12-03] MEDS: ZINC SULFATE 220 MG CAPSULE PO SCH (08:36)
[2020-12-03] MEDS: SODIUM CHLORIDE 0.65% NASAL SPRAY 45 ML BOTTLE BOTH NARES SCH ×2 (08:36→20:30)
[2020-12-03] MEDS: carvediloL 12.5 MG TABLET PO SCH ×2 (08:36→20:30)
[2020-12-03] MEDS: FLUTICASONE 50 MCG NASAL SPRAY 16 GM BOTTLE BOTH NARES SCH ×2 (08:36→20:30)
[2020-12-03] MEDS: MYLANTA/LIDO VISC/NYST 180 ML BOTTLE SWISH/SWAL SCH ×4 (08:36→20:30)
[2020-12-03] MEDS: ALBUTEROL INHALER 18 GM INH SCH ×2 (08:36→20:30)
[2020-12-03] MEDS: SUCRALFATE 1 GM/10 ML UDCUP PO SCH ×4 (08:36→20:30)
[2020-12-03] MEDS: ENOXAPARIN 40 MG/0.4 ML SYRINGE SUBCUT SCH (11:28)
[2020-12-03] MEDS: PIPERACILLIN/TAZOBACTAM 3,375 MG in SODIUM CHLORIDE 0.9% 100 ML IV SCH ×2 (11:28→17:42)
[2020-12-03] MEDS: VANCOMYCIN INJ 1,250 MG in SODIUM CHLORIDE 0.9% 250 ML IV SCH (14:51)
[2020-12-04] MEDS: VANCOMYCIN INJ 1,250 MG in SODIUM CHLORIDE 0.9% 250 ML IV SCH ×2 (02:15→15:52)
[2020-12-04] MEDS: PIPERACILLIN/TAZOBACTAM 3,375 MG in SODIUM CHLORIDE 0.9% 100 ML IV SCH ×3 (03:40→18:26)
[2020-12-04 05:06] LABS: Basophils % 0.1 % (0.0-0.8); Hematocrit 29.3 VOL% (42.0-52.0); Hemoglobin 9.7 GM/DL (14.0-18.0); Immature Granulocytes % 1.2 %; Mean Corpuscular HGB Conc 33.1 GM/DL (32-36); Mean Corpuscular Volume 93.6 FL (87-102); Mean Platelet Volume 12.3 FL (9.6-12.0); Monocytes % 3.4 % (1.7-12.7); Neutrophils % 94.3 % (38.7-73.9); Platelet Count 122 T/CUMM (130-400); Red Blood Count 3.13 MC/CUMM (3.8-5.5); Red Cell Distribution Width 12.3 % (9.3-17.3); White Blood Count 33.5 T/CUMM (4-12)
[2020-12-04 05:07] LABS: Basophils # 0.1 10*3/uL (0.0-0.2); Immature Granulocytes Absolute 0.39 #; Lymphocytes # 0.3 10*3/uL (1.4-4.0); NRBC # 0.02 10*3/uL
[2020-12-04 05:34] LABS: Calcium 7.8 MG/DL (8.5-10.1); Osmolality,Calculated 315.9 MOS/KG (273-304); Potassium 4.6 MMOL/L (3.5-5.1)
[2020-12-04 05:46] LABS: Band Neutrophils 2 % (0-10); Lymphocytes 2 % (20-55); Platelet Estimate Decreased; Segmented Neutrophils 93 % (50-85); Total Cells Counted 100
[2020-12-04 08:09] LABS: Ferritin 1452.8 ng/ml (26-388)
[2020-12-04] MEDS: SUCRALFATE 1 GM/10 ML UDCUP PO SCH ×4 (10:12→20:50)
[2020-12-04] MEDS: DEXAMETHASONE 10 MG/1 ML VIAL IV SCH (10:12)
[2020-12-04] MEDS: MYLANTA/LIDO VISC/NYST 180 ML BOTTLE SWISH/SWAL SCH ×4 (10:12→20:50)
[2020-12-04] MEDS: carvediloL 12.5 MG TABLET PO SCH ×2 (10:12→20:50)
[2020-12-04] MEDS: DILTIAZEM CD 180 MG CAPSULE PO SCH (10:12)
[2020-12-04] MEDS: ALBUTEROL INHALER 18 GM INH SCH ×2 (10:12→18:26)
[2020-12-04] MEDS: PANTOPRAZOLE 40 MG VIAL IV SCH ×2 (10:13→20:50)
[2020-12-04] MEDS: FLUTICASONE 50 MCG NASAL SPRAY 16 GM BOTTLE BOTH NARES SCH ×2 (10:13→20:50)
[2020-12-04] MEDS: SODIUM CHLORIDE 0.65% NASAL SPRAY 45 ML BOTTLE BOTH NARES SCH ×2 (10:13→20:50)
[2020-12-04] MEDS: HYDROXYCHLOROQUINE 200 MG TABLET PO SCH ×2 (10:13→20:50)
[2020-12-04] MEDS: ZINC SULFATE 220 MG CAPSULE PO SCH (10:14)
[2020-12-04] MEDS: ENOXAPARIN 40 MG/0.4 ML SYRINGE SUBCUT SCH (11:37)
[2020-12-05] MEDS: VANCOMYCIN INJ 1,250 MG in SODIUM CHLORIDE 0.9% 250 ML IV SCH ×2 (02:05→15:28)
[2020-12-05] MEDS: PIPERACILLIN/TAZOBACTAM 3,375 MG in SODIUM CHLORIDE 0.9% 100 ML IV SCH ×3 (03:10→17:37)
[2020-12-05 04:13] LABS: Bacteria,Urine Occasional /HPF (Few); Bilirubin,Urine Negative (Negative); Blood, Urine Small mg/dL (Negative); Glucose,Urine (UA) Negative (Negative); Ketones,Urine Negative (Negative); Nitrite,Urine Negative (Negative); Protein,Urine 30 MG/DL; RBC,Urine 17 /HPF (0-4); Squamous Epithelial Cell,Urine Occasional /HPF (0-10); Urine Appearance Slightly Hazy (Clear); Urine Color Yellow (Yellow); Urine Specific Gravity 1.027 (1.001-1.035); Urine Urobilinogen < 2.0 EU/DL (0.2-1.0); WBC,Urine 1 /HPF (0-6)
[2020-12-05 06:33] LABS: Basophils % 0.1 % (0.0-0.8); Hemoglobin 9.2 GM/DL (14.0-18.0); Immature Granulocytes % 1.2 %; Immature Granulocytes Absolute 0.36 #; Lymphocytes # 0.3 10*3/uL (1.4-4.0); Mean Corpuscular HGB Conc 32.9 GM/DL (32-36); Mean Corpuscular Volume 93.3 FL (87-102); Mean Platelet Volume 12.8 FL (9.6-12.0); Monocytes % 2.8 % (1.7-12.7); NRBC # 0.04 10*3/uL; Neutrophils % 94.9 % (38.7-73.9); Platelet Count 117 T/CUMM (130-400); Red Cell Distribution Width 12.5 % (9.3-17.3); White Blood Count 29.9 T/CUMM (4-12)
[2020-12-05 06:50] LABS: Calcium 8.2 MG/DL (8.5-10.1); Potassium 4.5 MMOL/L (3.5-5.1)
[2020-12-05 07:05] LABS: Anisocytosis 1+; Macrocytosis 1+; Platelet Estimate Decreased; Polychromasia Few; Segmented Neutrophils 97 % (50-85); Total Cells Counted 100
[2020-12-05 07:06] LABS: Hypochromasia Slight
[2020-12-05] MEDS: ALBUTEROL INHALER 18 GM INH SCH ×2 (09:55→18:15)
[2020-12-05] MEDS: DILTIAZEM CD 180 MG CAPSULE PO SCH (09:55)
[2020-12-05] MEDS: SUCRALFATE 1 GM/10 ML UDCUP PO SCH ×4 (09:55→21:10)
[2020-12-05] MEDS: MYLANTA/LIDO VISC/NYST 180 ML BOTTLE SWISH/SWAL SCH ×4 (09:55→21:10)
[2020-12-05] MEDS: ZINC SULFATE 220 MG CAPSULE PO SCH (09:56)
[2020-12-05] MEDS: FLUTICASONE 50 MCG NASAL SPRAY 16 GM BOTTLE BOTH NARES SCH ×2 (09:56→21:10)
[2020-12-05] MEDS: SODIUM CHLORIDE 0.65% NASAL SPRAY 45 ML BOTTLE BOTH NARES SCH ×2 (09:56→21:10)
[2020-12-05] MEDS: PANTOPRAZOLE 40 MG VIAL IV SCH ×2 (09:56→21:10)
[2020-12-05] MEDS: HYDROXYCHLOROQUINE 200 MG TABLET PO SCH ×2 (09:56→21:10)
[2020-12-05] MEDS: carvediloL 12.5 MG TABLET PO SCH ×2 (09:56→21:10)
[2020-12-05] MEDS: DEXAMETHASONE 10 MG/1 ML VIAL IV SCH (09:56)
[2020-12-05] MEDS: ENOXAPARIN 40 MG/0.4 ML SYRINGE SUBCUT SCH (12:29)
[2020-12-05] MEDS: DEXTROSE 5% NACL 0.45% 1,000 ML IV SCH (21:10)
[2020-12-06] MEDS: VANCOMYCIN INJ 1,250 MG in SODIUM CHLORIDE 0.9% 250 ML IV SCH ×2 (02:11→15:31)
[2020-12-06] MEDS: PIPERACILLIN/TAZOBACTAM 3,375 MG in SODIUM CHLORIDE 0.9% 100 ML IV SCH ×3 (03:40→17:36)
[2020-12-06 04:30] LABS: ABG HCO3 28.9 MMOL/L (20-26); ABG PCO2 42.8 MM HG (35-48); ABG PH 7.447 (7.35-7.45); ABG PO2 81.6 MM HG (80-95); ABG TCO2 27.2 MMOL/L (23-27)
[2020-12-06] MEDS: DEXTROSE 5% NACL 0.45% 1,000 ML IV SCH ×3 (05:19→21:52)
[2020-12-06 05:46] LABS: Basophils % 0.1 % (0.0-0.8); Hematocrit 28.4 VOL% (42.0-52.0); Immature Granulocytes % 1.3 %; Immature Granulocytes Absolute 0.37 #; Lymphocytes # 0.3 10*3/uL (1.4-4.0); Mean Corpuscular HGB Conc 31.7 GM/DL (32-36); Mean Corpuscular Volume 97.6 FL (87-102); Mean Platelet Volume 12.6 FL (9.6-12.0); Monocytes % 2.8 % (1.7-12.7); NRBC # 0.05 10*3/uL; Neutrophils % 94.8 % (38.7-73.9); Platelet Count 119 T/CUMM (130-400); Red Blood Count 2.91 MC/CUMM (3.8-5.5); Red Cell Distribution Width 13.2 % (9.3-17.3); White Blood Count 28.7 T/CUMM (4-12)
[2020-12-06 06:15] LABS: Albumin 1.5 G/DL (3.4-5.0); Calcium 7.8 MG/DL (8.5-10.1); Osmolality,Calculated 311.3 MOS/KG (273-304); Potassium 4.8 MMOL/L (3.5-5.1); Prealbumin 12.4 MG/DL (20-40)
[2020-12-06 06:31] LABS: Anisocytosis Slight; Band Neutrophils 2 % (0-10); Hypersegmented Neutrophil Few; Lymphocytes 2 % (20-55); Platelet Estimate Adequate; Segmented Neutrophils 93 % (50-85); Smudge Cells Few; Total Cells Counted 100
[2020-12-06] MEDS: carvediloL 12.5 MG TABLET PO SCH ×2 (08:05→21:44)
[2020-12-06] MEDS: DEXAMETHASONE 10 MG/1 ML VIAL IV SCH (08:05)
[2020-12-06] MEDS: ALBUTEROL INHALER 18 GM INH SCH ×2 (08:05→21:47)
[2020-12-06] MEDS: ZINC SULFATE 220 MG CAPSULE PO SCH (08:05)
[2020-12-06] MEDS: SUCRALFATE 1 GM/10 ML UDCUP PO SCH ×4 (08:05→21:46)
[2020-12-06] MEDS: MYLANTA/LIDO VISC/NYST 180 ML BOTTLE SWISH/SWAL SCH ×4 (08:05→21:45)
[2020-12-06] MEDS: DILTIAZEM CD 180 MG CAPSULE PO SCH (08:05)
[2020-12-06] MEDS: FLUTICASONE 50 MCG NASAL SPRAY 16 GM BOTTLE BOTH NARES SCH ×2 (08:05→21:45)
[2020-12-06] MEDS: HYDROXYCHLOROQUINE 200 MG TABLET PO SCH ×2 (08:05→21:44)
[2020-12-06] MEDS: SODIUM CHLORIDE 0.65% NASAL SPRAY 45 ML BOTTLE BOTH NARES SCH ×2 (08:05→21:45)
[2020-12-06] MEDS: PANTOPRAZOLE 40 MG VIAL IV SCH ×2 (08:08→21:44)
[2020-12-06] MEDS ORDERED: FUROSEMIDE 40 MG/4 ML VIAL IV ONE (09:44)
[2020-12-06] MEDS: methylPREDNISolone SOD SUC 40 MG/1 ML VIAL IV SCH ×2 (10:24→17:02)
[2020-12-06] MEDS: ENOXAPARIN 40 MG/0.4 ML SYRINGE SUBCUT SCH (11:16)
[2020-12-07] MEDS: methylPREDNISolone SOD SUC 40 MG/1 ML VIAL IV SCH ×3 (01:43→17:10)
[2020-12-07] MEDS: VANCOMYCIN INJ 1,250 MG in SODIUM CHLORIDE 0.9% 250 ML IV SCH ×2 (01:45→14:27)
[2020-12-07] MEDS: PIPERACILLIN/TAZOBACTAM 3,375 MG in SODIUM CHLORIDE 0.9% 100 ML IV SCH ×3 (03:39→17:42)
[2020-12-07 05:48] LABS: Basophils % 0.1 % (0.0-0.8); Hematocrit 26.5 VOL% (42.0-52.0); Hemoglobin 8.6 GM/DL (14.0-18.0); Immature Granulocytes % 1.1 %; Immature Granulocytes Absolute 0.27 #; Lymphocytes # 0.2 10*3/uL (1.4-4.0); Lymphocytes % 0.7 % (21.2-54.2); Mean Corpuscular HGB Conc 32.5 GM/DL (32-36); Mean Corpuscular Volume 96.4 FL (87-102); Mean Platelet Volume 13.3 FL (9.6-12.0); Monocytes % 1.7 % (1.7-12.7); NRBC # 0.04 10*3/uL; Neutrophils % 96.4 % (38.7-73.9); Platelet Count 124 T/CUMM (130-400); Red Blood Count 2.75 MC/CUMM (3.8-5.5); Red Cell Distribution Width 13.3 % (9.3-17.3); White Blood Count 23.8 T/CUMM (4-12)
[2020-12-07 06:05] LABS: Calcium 7.6 MG/DL (8.5-10.1); Osmolality,Calculated 311.4 MOS/KG (273-304); Potassium 4.7 MMOL/L (3.5-5.1)
[2020-12-07 06:09] LABS: Hypochromasia 1+; Lymphocytes 1 % (20-55); Microcytosis 1+; Platelet Estimate Normal; Segmented Neutrophils 97 % (50-85); Total Cells Counted 100
[2020-12-07] MEDS: HYDROXYCHLOROQUINE 200 MG TABLET PO SCH ×2 (08:05→21:57)
[2020-12-07] MEDS: SUCRALFATE 1 GM/10 ML UDCUP PO SCH ×4 (08:05→21:57)
[2020-12-07] MEDS: ZINC SULFATE 220 MG CAPSULE PO SCH (08:05)
[2020-12-07] MEDS: FLUTICASONE 50 MCG NASAL SPRAY 16 GM BOTTLE BOTH NARES SCH ×2 (08:05→21:58)
[2020-12-07] MEDS: SODIUM CHLORIDE 0.65% NASAL SPRAY 45 ML BOTTLE BOTH NARES SCH ×2 (08:05→21:58)
[2020-12-07] MEDS: DILTIAZEM CD 180 MG CAPSULE PO SCH (08:05)
[2020-12-07] MEDS: PANTOPRAZOLE 40 MG VIAL IV SCH ×2 (08:05→21:57)
[2020-12-07] MEDS: carvediloL 12.5 MG TABLET PO SCH ×2 (08:05→21:57)
[2020-12-07] MEDS: MYLANTA/LIDO VISC/NYST 180 ML BOTTLE SWISH/SWAL SCH ×4 (08:05→21:58)
[2020-12-07] MEDS: DEXTROSE 5% NACL 0.45% 1,000 ML IV SCH ×3 (08:29→22:02)
[2020-12-07] MEDS: ALBUTEROL INHALER 18 GM INH SCH ×2 (08:29→21:59)
[2020-12-07] MEDS: ENOXAPARIN 40 MG/0.4 ML SYRINGE SUBCUT SCH (11:20)
[2020-12-08] MEDS: methylPREDNISolone SOD SUC 40 MG/1 ML VIAL IV SCH ×3 (02:11→17:41)
[2020-12-08] MEDS: VANCOMYCIN INJ 1,250 MG in SODIUM CHLORIDE 0.9% 250 ML IV SCH ×2 (02:13→13:36)
[2020-12-08] MEDS: PIPERACILLIN/TAZOBACTAM 3,375 MG in SODIUM CHLORIDE 0.9% 100 ML IV SCH ×3 (04:03→17:43)
[2020-12-08 07:30] LABS: Calcium 7.8 MG/DL (8.5-10.1); Osmolality,Calculated 305.8 MOS/KG (273-304); Potassium 4.8 MMOL/L (3.5-5.1)
[2020-12-08] MEDS: SUCRALFATE 1 GM/10 ML UDCUP PO SCH ×4 (08:08→22:07)
[2020-12-08] MEDS: MYLANTA/LIDO VISC/NYST 180 ML BOTTLE SWISH/SWAL SCH ×4 (08:08→22:07)
[2020-12-08] MEDS: ALBUTEROL INHALER 18 GM INH SCH ×2 (08:08→22:07)
[2020-12-08] MEDS: PANTOPRAZOLE 40 MG VIAL IV SCH ×2 (08:09→22:07)
[2020-12-08] MEDS: DILTIAZEM CD 180 MG CAPSULE PO SCH (08:09)
[2020-12-08] MEDS: carvediloL 12.5 MG TABLET PO SCH ×2 (08:09→22:07)
[2020-12-08] MEDS: DEXTROSE 5% NACL 0.45% 1,000 ML IV SCH ×2 (08:09→17:41)
[2020-12-08] MEDS: HYDROXYCHLOROQUINE 200 MG TABLET PO SCH ×2 (08:09→22:07)
[2020-12-08] MEDS: SODIUM CHLORIDE 0.65% NASAL SPRAY 45 ML BOTTLE BOTH NARES SCH ×2 (08:09→22:08)
[2020-12-08] MEDS: ZINC SULFATE 220 MG CAPSULE PO SCH (08:09)
[2020-12-08] MEDS: FLUTICASONE 50 MCG NASAL SPRAY 16 GM BOTTLE BOTH NARES SCH ×2 (08:09→22:07)
[2020-12-08] MEDS ORDERED: SKIN HEALING OINT (AQUAPHOR) 50 GM TUBE TOP PRN (10:26)
[2020-12-08] MEDS: ENOXAPARIN 40 MG/0.4 ML SYRINGE SUBCUT SCH (11:49)
[2020-12-09] MEDS: methylPREDNISolone SOD SUC 40 MG/1 ML VIAL IV SCH ×3 (01:41→17:42)
[2020-12-09] MEDS: VANCOMYCIN INJ 1,250 MG in SODIUM CHLORIDE 0.9% 250 ML IV SCH (01:43)
[2020-12-09] MEDS: PIPERACILLIN/TAZOBACTAM 3,375 MG in SODIUM CHLORIDE 0.9% 100 ML IV SCH (02:54)
[2020-12-09 05:56] LABS: Basophils % 0.1 % (0.0-0.8); Hematocrit 21.9 VOL% (42.0-52.0); Immature Granulocytes % 0.8 %; Immature Granulocytes Absolute 0.17 #; Lymphocytes # 0.1 10*3/uL (1.4-4.0); Lymphocytes % 0.6 % (21.2-54.2); Mean Corpuscular HGB Conc 31.1 GM/DL (32-36); Mean Corpuscular Volume 102.3 FL (87-102); Mean Platelet Volume 13.3 FL (9.6-12.0); Monocytes % 3.6 % (1.7-12.7); NRBC # 0.06 10*3/uL; Neutrophils % 94.9 % (38.7-73.9); Platelet Count 101 T/CUMM (130-400); Red Cell Distribution Width 14.8 % (9.3-17.3); White Blood Count 20.5 T/CUMM (4-12)
[2020-12-09 06:01] LABS: Hemoglobin 6.8 GM/DL (14.0-18.0); Red Blood Count 2.14 MC/CUMM (3.8-5.5)
[2020-12-09 06:26] LABS: Lymphocytes 2 % (20-55); Platelet Estimate Decreased; Segmented Neutrophils 95 % (50-85); Total Cells Counted 100
[2020-12-09 06:27] LABS: Hypochromasia 1+; Microcytosis 1+
[2020-12-09] MEDS ORDERED: SODIUM CHLORIDE 0.9% 1,000 ML IV PRN (07:27)
[2020-12-09] MEDS ORDERED: MORPHINE 4 MG/1 ML VIAL IV PRN (10:12)
[2020-12-09] MEDS ORDERED: ACETAMINOPHEN 120 MG SUPP RECTAL PRN (10:13)
[2020-12-09] MEDS: ALBUTEROL INHALER 18 GM INH SCH ×2 (10:42→20:27)
[2020-12-09] MEDS: FLUTICASONE 50 MCG NASAL SPRAY 16 GM BOTTLE BOTH NARES SCH (10:43)
[2020-12-09] MEDS: HYDROXYCHLOROQUINE 200 MG TABLET PO SCH (10:43)
[2020-12-09] MEDS: DILTIAZEM CD 180 MG CAPSULE PO SCH (10:44)
[2020-12-09] MEDS: SUCRALFATE 1 GM/10 ML UDCUP PO SCH (10:44)
[2020-12-09] MEDS: carvediloL 12.5 MG TABLET PO SCH (10:44)
[2020-12-09] MEDS: ZINC SULFATE 220 MG CAPSULE PO SCH (10:44)
[2020-12-09] MEDS: PANTOPRAZOLE 40 MG VIAL IV SCH ×2 (10:45→20:27)
[2020-12-09] MEDS: MYLANTA/LIDO VISC/NYST 180 ML BOTTLE SWISH/SWAL SCH ×4 (10:45→20:27)
[2020-12-09] MEDS: SODIUM CHLORIDE 0.65% NASAL SPRAY 45 ML BOTTLE BOTH NARES SCH ×2 (10:45→20:27)
[2020-12-09] MEDS: ENOXAPARIN 40 MG/0.4 ML SYRINGE SUBCUT SCH (11:10)
[2020-12-09] MEDS: ZINC OXIDE 16% PASTE 57 GM TUBE TOP SCH ×2 (11:10→21:28)
[2020-12-09] MEDS: DEXTROSE 5% NACL 0.45% 1,000 ML IV SCH (17:42)
[2020-12-09] MEDS: LORazepam 2 MG/1 ML VIAL IV PRN (21:38)
[2020-12-10] MEDS: methylPREDNISolone SOD SUC 40 MG/1 ML VIAL IV SCH ×2 (01:07→10:14)
[2020-12-10] MEDS: LORazepam 2 MG/1 ML VIAL IV PRN (05:42)
[2020-12-10 08:04] VITALS: BP 77/51
[2020-12-10] MEDS: ALBUTEROL INHALER 18 GM INH SCH (09:56)
[2020-12-10] MEDS: MYLANTA/LIDO VISC/NYST 180 ML BOTTLE SWISH/SWAL SCH (09:56)
[2020-12-10] MEDS: ZINC OXIDE 16% PASTE 57 GM TUBE TOP SCH (09:56)
[2020-12-10] MEDS: ZINC SULFATE 220 MG CAPSULE PO SCH (10:14)
[2020-12-10] MEDS: PANTOPRAZOLE 40 MG VIAL IV SCH (10:14)
[2020-12-10] MEDS: SODIUM CHLORIDE 0.65% NASAL SPRAY 45 ML BOTTLE BOTH NARES SCH (10:14)
== END 2020-12-10 12:02 | disposition expired | DRG 177 ==
LOC: N.ED 14:21 → N.EDINP 17:55 → SUATTDRO 17:55 → N.EDINP 20:45 → N.2E 21:18
PROVIDERS: ADMIT Internal Medicine; ATTEND Internal Medicine